=== PATIENT | female | born 1960 | race Caucasian/White ===

== ENCOUNTER 2021-04-19 07:55 | Emergency (ER) | payer OTHER ==
[2021-04-19] MEDS ORDERED: Ketorolac 30 MG/ML SDV IVPUSH ONE (08:24)
[2021-04-19] MEDS ORDERED: Sodium Chloride 0.9% 10 ML Syringe FLUSH PRN (08:24)
[2021-04-19] MEDS ORDERED: diphenhydrAMINE 50 MG/ML SDV IVPUSH ONE (08:24)
[2021-04-19] MEDS ORDERED: Lactated Ringers 1,000 ML IV ONE (08:24)
[2021-04-19 09:13] LABS: CHLORIDE,CL 102 mmol/L (98-107); SODIUM,NA 139 mmol/L (136-145)
[2021-04-19] MEDS ORDERED: Orphenadrine 60 MG/2 ML Inj IV STA (11:14)
== END 2021-04-19 11:52 | disposition home or self-care (01) ==
LOC: VM.ED 07:55
DX: N23 Unspecified renal colic (principal); E78.00 Pure hypercholesterolemia, unspecified; I10 Essential (primary) hypertension; K21.9 Gastro-esophageal reflux disease without esophagitis; E11.9 Type 2 diabetes mellitus without complications; Z88.8 Allergy status to other drugs, medicaments and biological substances; Z91.041 Radiographic dye allergy status; Z88.0 Allergy status to penicillin
CPT/HCPCS: 36415; 74176; 80053; 81001; 85025; 86140; 96374; 96375; 99284; 99284-25; J1200; J1885; J2360; J7120